=== PATIENT | female | born 1930 | race Caucasian/White ===

== ENCOUNTER 2019-07-22 01:16 | Emergency (ER) | payer OTHER ==
[~2019-07-22] VITALS: Ht 170.2 cm; Wt 63.5 kg
--- NOTE | 2019-07-22 01:20 | NUR ---
88 Y/O F, BIBA. PATIENT REPORTS HAVING EPISODES OF DIZZINESS FOR 1 DAY BUT REPORTS HAVING CHRONIC DIZZINESS. PATIENT TOOK MELATONIN AND NORCO AND VOMITED. DID NOT HAVE ANYTHING TO EAT PRIOR TO TAKING MEDICATIONS. PATIENT REPORTS SHE HAS AN APPOINTMENT WITH PCP FOR DIZZINESS BUT TONIGHT IT WAS INTOLERABLE. SIDERAILS UP x1, WILL CONTINUE TO MONITOR.
[2019-07-22 01:22] VITALS: BP 123/67
[2019-07-22] MEDS ORDERED: MECLIZINE 25 MG TAB PO ONE (01:40)
--- NOTE | 2019-07-22 01:54 | NUR ---
PATIENT TAKEN TO CT VIA WHEELCHAIR, ABLE TO AMBULATE FROM BED TO WHEELCHAIR.
--- NOTE | 2019-07-22 03:12 | NUR ---
CALLED PT DAUGHTER SERGE, NO ANSWER. VOICEMAIL LEFT. WILL TRY AGAIN.
[2019-07-22 04:00] VITALS: BP 132/80
--- NOTE | 2019-07-22 04:02 | NUR ---
CALLED AND LEFT A MESSEGE FOR PT'S FAMILY, SERGE, FOR PT PROPERTY [employer]IST. PT IS D/C AND NEEDS A RIDE HOME. NOT ABLE TO GET IN CONTACT WITH FAMILY AT THIS TIME, WILL TRY AGAIN. SUSHIL MADE AWARE OF STATUS.
--- NOTE | 2019-07-22 04:10 | NUR ---
PATIENT IN STABLE CONDITION, VSS, PATIENT SEEN WITH EYES CLOSED, VISIBLE CHEST RISE AND FALL NOTED. WILL CONTINUE TO MONITOR.
--- NOTE | 2019-07-22 04:55 | NUR ---
PATIENT IS OK TO TAKE TAXI HOME.
--- NOTE | 2019-07-22 05:50 | NUR ---
PATIENT AMBULATED TO ER LOBBY TO WAIT FOR TAXI WITHOUT INCIDENT.
== END 2019-07-22 05:47 | disposition home or self-care (01) ==
LOC: MED 01:16
DX: R42 Dizziness and giddiness (principal); I10 Essential (primary) hypertension; Z88.8 Allergy status to other drugs, medicaments and biological substances
CPT/HCPCS: 70450; 99284; J8597